=== PATIENT | male | born 1955 | race Caucasian/White ===

== ENCOUNTER 2019-08-05 08:27 | Outpatient (CLI) | payer BC, MEDICARE ==
[2019-08-05] MEDS ORDERED: OMEP20TA62 PO (10:18)
[2019-08-05] MEDS ORDERED: SUCR1TAB PO (10:18)
== END 2019-08-05 23:59 | disposition home or self-care (01) ==
LOC: STAR 08:27
PROVIDERS: ATTEND Internal Medicine
DX: Z01.818 Encounter for other preprocedural examination (principal); K31.89 Other diseases of stomach and duodenum
CPT/HCPCS: 93005

== ENCOUNTER 2019-08-09 07:54 | Day surgery (SDC) | payer BC, MEDICARE ==
[~2019-08-09] VITALS: Ht 180.3 cm; Wt 98.9 kg
[~2019-08-09 07:54] MED LIST: OMEP20TA62 PO; SUCR1TAB PO
[2019-08-09] MEDS ORDERED: LACTATED RINGERS 1,000 ML IV SCH (08:36)
[2019-08-09 08:40] VITALS: BP 127/77
[2019-08-09] MEDS ORDERED: MULT-658 PO (08:45)
[2019-08-09] MEDS ORDERED: LIDOCAINE-MPF 1%, 2ML INFIL ONE (09:00)
[2019-08-09] MEDS ORDERED: PROPOFOL 50 ML ONE (10:49)
[2019-08-09] MEDS ORDERED: FENTANYL PF 100 MCG/2ML IV PRN (11:00)
== END 2019-08-09 13:05 | disposition home or self-care (01) ==
LOC: OUT 07:54
PROVIDERS: ATTEND Internal Medicine
DX: C15.9 Malignant neoplasm of esophagus, unspecified (principal); K21.9 Gastro-esophageal reflux disease without esophagitis; Z96.652 Presence of left artificial knee joint; Z98.890 Other specified postprocedural states
CPT/HCPCS: 43242; 88172; 88173; 88305; J2704; J7120